=== PATIENT | female | born 1980 ===

== ENCOUNTER 2024-11-13 13:21 | Inpatient (IN) | payer OTHER, SELFPAY ==
[2024-11-13 13:31] VITALS: BP 144/86; BP 170/110; PULSE 114; PULSE 130; RESP 18; TEMP 36.8; O2SAT 96; BMI 40.1
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
--- NOTE | 2024-11-13 13:43 | ECG_ITS ---
Test Reason : MED CLEARANCE Blood Pressure : */* mmHG Vent. Rate : 84 BPM Atrial Rate : 84 BPM P-R Int : 146 ms QRS Dur : 102 ms QT Int : 380 ms P-R-T Axes : 47 -13 12 degrees QTcB Int : 449 ms Normal sinus rhythm with sinus arrhythmia Normal ECG No previous ECGs available Referred By: Generic ED Physician Electronically Signed By: LANDEN CUEVAS
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
[2024-11-13] MEDS: diazePAM 10 MG/2 ML CARTRIDGE 5 MG IM (13:45)
--- NOTE | 2024-11-13 14:26 | PC.NURSE ---
at 1340, patient stood up out of bed, ripped gown and medical wires off and ran/screamed into ED hallway. patient then started pulling her own hair out in clumps and threw herself face down in the hallway. staff assist called to bedside, security at bedside. patient assisted to stand position and back into ED stretcher. patient placed into 4 pt restraints, see paper charting. patient medicated per MAR see restraint IM papers. patient has sitter at bedside. patient is speaking in somali, but at times requests interp. guyanese interp utilized for interaction with pt.
--- NOTE | 2024-11-13 14:32 | MHC.EDTECH ---
attempted to do ekg/labs pt refused I'm all set
--- NOTE | 2024-11-13 14:51 | PC.NURSE ---
patient sitting up in bed, [address] in [address], patient has +CRUISE COORDINATOR in all 4 extremities. patient had one episode of vomiting, clear vomit. ODT zofran offered to patient, patient refused to take zofran, patient states shes just trying to do whats right . patient educated zofran was for the nausea. patient appears very confused, keeps asking same questions despite being given answers. patient requested mauritanian interp, interp paged.
[2024-11-13] MEDS: OLANZapine 10 MG VIAL IM (15:20)
[2024-11-13 15:45] VITALS: BP 133/83; PULSE 103; RESP 18; O2SAT 100
--- NOTE | 2024-11-13 15:50 | PC.NURSE ---
at 1315 patient started screaming at sitter and people walking by, patient vomiting, refusing emesis bags, spitting on furniature in room. IM reglan given per MAR, IM zyprexa given per MAR and medication restraint sheet. procedures analyst at bedside as requested by patient, patient speaking over interp in polish at staff.
--- NOTE | 2024-11-13 15:56 | PC.NURSE ---
patient continues to yell out, does not follow commands, does not have congruent thinking or speech.
[2024-11-13 16:07] VITALS: BP 130/74; PULSE 116; RESP 20; O2SAT 98
[2024-11-13 18:02] LABS: UPreg QC Valid YES
[2024-11-13 18:09] LABS: MANUAL DIFF FLAG NO
[2024-11-13 18:14] LABS: Hematocrit 38.9 % (37.0-47.0); Hemoglobin 13.8 g/dl (12.0-16.0); Imm Gran Abs Auto 0.04 X10*3/uL (0.00-0.03); Imm Gran Pct Auto 0.3 % (0.0-0.4); Lymphocytes Absolute Auto 1.1 X10*3/uL (1.2-4.9); Mean Corpuscular HGB Conc 35.5 g/dl (31.0-35.0); Mean Corpuscular Hemoglobin 30.3 pg (27.0-33.0); Mean Corpuscular Volume 85.3 fL (80.0-98.0); NRBC Abs Auto 0.000 X10*3/uL (0.0-0.012); NRBC Pct Auto 0.0 /100WBC (0.0-0.2); Platelet Count 347 X10*3/uL (160-400); Red Blood Count 4.56 X10*6/uL (4.20-5.50); White Blood Count 12.5 X10*3/uL (4.8-10.8)
[2024-11-13 18:17] LABS: Cannabinoid Screen Urine POSITIVE (Not Detect)
[2024-11-13 18:48] LABS: Alanine Aminotransferase 24 U/L (0-31); Albumin Level 4.5 g/dL (3.5-5.0); Alkaline Phosphatase 76 U/L (39-117); Anion Gap 13 (12-20); Aspartate Amino Transferase 31 U/L (5-31); Blood Urea Nitrogen 11 mg/dL (9-16); Calcium 9.3 mg/dL (8.4-10.2); Carbon Dioxide 22 mmol/L (22-29); Chloride 108 mmol/L (96-108); Creatinine Clr Calc Pharmacy 159.0; Estimated Glomerular Filt Rate > 60; Potassium 3.7 mmol/L (3.3-5.1); Sodium 139 mmol/L (135-145); Total Protein 7.6 g/dL (6.5-8.0)
[2024-11-13 19:06] LABS: Appearance Urine Clear; Glucose Urine UA Negative (Negative); PH 5.5 (5.0-9.0); Specific Gravity - Urine 1.015 (1.005-1.025); UMIC TRIGGER UACC YES
--- OUTSIDE RECORDS SUMMARY | 2024-11-13 19:24 | XMS_ITS | Clinical Summary ---
Author Organization [facility] Address [address] [address] Phone Care Team Providers Care Furrier Apprentice Name Role Phone Pcp, Unknown Primary Care Provider Unavailabl e Allergies No known active allergies Medications No known medications Social History Tobacco Use Types Packs/Day Years Used Date Smoking Tobacco: Never Smokeless Tobacco: Never Tobacco Cessation:Counseling Given: Not Answered Alcohol Use Standard Drinks/Week Comments Not Currently 0 (1 standard drink = 0.6 oz pur e alcohol) Education Answer Date Recorded Are you interested in more education? Not on lu e 04/18/2024 Are you concerned about learning? Not on file 04/18/2024 No 04/18/2024 No 04/18/2024 Food Answer Date Recorded Within the past 6 months we worried whether our food would run out before we got money to buy more. Often True 08/12/2024 Within the past 6 months the food we bought just didn't last and we didn't have enough money to get more. Often True Residential Stability Answer Date Recor ded What is your housing situation today? I have marnie sing 08/12/2024 How many times have you move d in the past 12 months? Zero (I did not move) 08/12/2024 Paying for Meds Answer Date Recorded Do you have trouble paying for medicines? No 08/12/2024 Paying Utility Bills Answer Date Record ed Do you have trouble paying your heating or elect ricity bill? Yes 08/12/2024 Transportation Answer Date Recorded Has the lack of transportati on kept you from medical appointments or from getting medications? No 08/12/2024 Digital Access Answer Date Recorded No 08/12/2024 Yes 08/12/2024 Do you have reliable internet access at home? Ye s 08/12/2024 Do you have a device (e.g., phone, tablet, computer) with a working camera? Yes 08/12/2024 Intimate Partner Violence Answer Date R ecorded Are you denied basic needs s uch as food, clothing, or medical care? No 08/12/2024 In the past 12 months have y ou been in a relationship with a person who hurts, threatens, or tries to control you? No 08/12/2024 Are you denied basic needs s uch as food, clothing, or medical care? No 08/12/2024 In the past 12 months have y ou been in a relationship with a person who hurts, threatens, or tries to control you? No 08/12/2024 Comments Unknown Sex and Gender Information Value Date Recorded Sex Assigned at Female 08/12/2024 11:25 AM EDT Legal Sex Female 6:19 PM EST Gender Identity Female 08/12/2024 11:25 AM EDT Sexual Orientation Straight 08/12/2024 11 :25 AM EDT Last Filed Vital Signs Vital Sign Reading Time Taken Comments Blood Pressure 122/73 08/12/2024 11:26 AM EDT Pulse 67 08/12/2024 11:26 AM EDT Temperature 35.8 C (96.4 F) 08/12/2024 11:26 AM EDT Respiratory Rate 16 08/12/2024 11:26 AM EDT Oxygen Saturation 98% 08/12/2024 11:26 AM EDT Inhaled Oxygen Concentration - - Weight 131.5 kg (290 lb) 08/12/2024 11:26 AM EDT Height 162.6 cm (5' 4 ) 08/12/2024 11:26 AM EDT Body Mass Index 49.78 08/12/2024 11:26 AM EDT Plan of Treatment Health Maintenance Due Date Last Done Comments Adult Td,Tdap Booster 1981 DEPRESSION SCREENING 1993 HEPATITIS C SCREENING 06/22/1999 HIV ONE-TIME SCREENING (18-6 5 YEARS) 06/22/1999 PAP SMEAR 09/28/2008 09/28/2005, 09/28/2005 MAMMOGRAM 2021 INFLUENZA VACCINE (#1) 2024 COVID-19 VACCINE (2023-2 5 season) 2024 SCREENING FOR DIABETES 08/13/2027 08/12/2024 SMOKING STATUS SCREENING (On ce After 26 Yrs) Completed 08/12/2024 HEPATITIS A VACCINES Aged Out No long er eligible based on patient's age to complete this topic HIB VACCINES Aged Out No longer eligi ble based on patient's age to complete this topic MENINGOCOCCAL VACCINES (ACWY) Aged Out No longer eligible based on patient's age to complete this topic MENINGOCOCCAL VACCINES (B) Aged Out N o longer eligible based on patient's age to complete this topic PNEUMOCOCCAL VACCINES (0-49 years) Aged Out No longer eligible b ased on patient's age to complete this topic Medical Devices Not on file Insurance [address] [place], [place] [id number] Member Subscriber Plan / Payer (Ef fective 2024-Present) Name:Shana Zavaleta Y Relation to Subscriber:Self Name:Shana Zavaleta Y Payer ID:Not on file Type:O [address] Member Subscriber Plan / Payer (Ef fective 2024-Present) Name:Shana Zavaleta Y Relation to Subscriber:Self Name:Shana Zavaleta Y Payer ID:Not on file Type:O [address] Member Subscriber Plan / Payer (Ef fective 2024-Present) Name:Shana Zavaleta Y Relation to Subscriber:Self Name:Shana Zavaleta Y Payer ID:Not on file Type:O [address] Member Subscriber Plan / Payer (Ef fective 2024-Present) Name:Shana Zavaleta Y Relation to Subscriber:Self Name:Shana Zavaleta Y Payer ID:Not on file Type:O Address[address] [place], [place] [id number] Care Teams Furrier Apprentice Relationship Specialty Start Date End Date Pcp, Unknown PCP - General 04/18/24 Additional Source Comments The information contained in this document represents components of the legal health record. It is not the complete legal health record.[facility]
--- NOTE | 2024-11-13 19:52 | PC.NURSE ---
Assumed care of patient at 1845, patient calm and cooperative, offering no complaints to this RN, sitting in rocking chair in common area. Continue plan of care for CARE team yelena
[2024-11-14 05:33] VITALS: BP 140/83; PULSE 82; RESP 17; TEMP 36.6; O2SAT 99
--- NOTE | 2024-11-14 07:26 | PC.NURSE ---
Assumed care, report received. Pt is awake and reading her bible. she is provided breakfast, she showers and calls family. she is mildly anxious and restless.
[2024-11-14 07:36] VITALS: PULSE 82
[2024-11-14 11:23] VITALS: BP 109/56; PULSE 88; RESP 18; TEMP 36.1; O2SAT 96
[2024-11-14 13:18] VITALS: BP 118/77; PULSE 78; RESP 16; TEMP 36.4; O2SAT 98
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
[2024-11-14 13:44] VITALS: BMI 45.3
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
[2024-11-14 19:25] VITALS: BP 119/71; PULSE 76; RESP 18; TEMP 36.7; O2SAT 96
[2024-11-14] MEDS: Lidocaine 4 % Patch ADH..PATCH 1 PATCH TRANSDERMA (22:06)
[2024-11-15] VITALS (14 sets, daily range): BP systolic 116–135; BP diastolic 64–98; PULSE 87–118; RESP 16–18; TEMP 36.3–37; O2SAT 94–99
[2024-11-15 08:34] LABS: Alanine Aminotransferase 29 U/L (0-31); Albumin Level 4.7 g/dL (3.5-5.0); Alkaline Phosphatase 78 U/L (39-117); Anion Gap 13 (12-20); Aspartate Amino Transferase 36 U/L (5-31); Blood Urea Nitrogen 10 mg/dL (9-16); Calcium 9.4 mg/dL (8.4-10.2); Carbon Dioxide 23 mmol/L (22-29); Chloride 105 mmol/L (96-108); Cholesterol 159 mg/dL (<200); Creatinine Clr Calc Pharmacy 130.2; Estimated Glomerular Filt Rate > 60; HDL Cholesterol 42 mg/dL (>40); Potassium 3.8 mmol/L (3.3-5.1); Sodium 137 mmol/L (135-145); Total Protein 8.0 g/dL (6.5-8.0); Triglycerides 79 mg/dL (<150)
[2024-11-15 08:38] LABS: Hemoglobin A1C 120.5069 umol/L; Total Hemoglobin (HGBA1C) 3619.2986 umol/L
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
--- NOTE | 2024-11-15 20:35 | HO.PSYEVENT ---
Event Note Date of Service: 11/15/24 Psych Restraint Event Note: pt agitated; extremely intrusive, verbally abusive to both staff and patients, yanking phones out of patients hands and throwing items and unable to be redirected; started throwing trash cans down the [address] and got naked in the hallway. Pt remained unable to be redirected and needed chemical and physical restraint Time Spent With Patient Time: Total time managing care of this patient today ____ minutes.
[2024-11-15] MEDS: diazePAM 10 MG/2 ML CARTRIDGE 5 MG IM (20:47)
[2024-11-15] MEDS: OLANZapine 10 MG VIAL IM (20:47)
--- NOTE | 2024-11-15 21:44 | HO.PSYEVENT ---
Event Note Date of Service: 11/15/24 Psych Restraint Event Note: one hour later, pt remains agitated, yelling and swearing loudly and remains unable to be redirected; hse required additional chemical restraint in order to be safe to release from chair. Time Spent With Patient Time: Total time managing care of this patient today ____ minutes.
[2024-11-15] MEDS: diazePAM 10 MG/2 ML CARTRIDGE IM (22:11)
--- NOTE | 2024-11-15 22:32 | HO.PSYEVENT ---
Event Note Date of Service: 11/15/24 Psych Restraint Event Note: no change, remains highly agitated, thrashing around and not safe to let out of chair. Will extend time in chair and administer more medications if does not start to stabilize Time Spent With Patient Time: Total time managing care of this patient today ____ minutes.
--- NOTE | 2024-11-16 00:26 | PC.NURSE ---
This evening at the beginning of shift patient was heard to be loud and disruptive in the hallway. She was yelling, screaming, and throwing her arms in the air combatively. She was aggressive and posing harm to staff and other patients. Patients were stating they were scared of her actions and abusive language and retreated to their bedrooms. Patient took staff members badge and flipped it around due to her disgust . Patient was attempted to be redirected on multiple occasions and asked if she could speak one on one. As walking down the [address] to speak, she abruptly turns around and yells Fuck you! and mutters something to the concept of Jehovah. Patient began to disrobe herself and was naked and intrusive in staff and patients faces. A patient was speaking on the telephone, and at one point she walked over and ripped the phone out of their hand and slammed it against the wall. She continues to yell and scream no matter how many tactics of redirection were tried. She took multiple trash cans and threw them down the hallway emptying the trash out and kicking and throwing the trash everywhere. Security was called and patient continued to misbehave erratic. orthopedically impaired teacher provider Neymar was informed of patients behavior and her refusal of HS Zypexa 5mg PO tonight. Provider placed order for STAT physical restraint and also chemical restraints. Patient was placed in restraint chair at 20:40 and was given Zyprexa 10mg IM and Valium 5mg IM at 20:43. No positive effect occurred from these medications, and provider placed an order for STAT Haldol 5mg IM and Valium 10mg IM at 22:12. Patient seemed to have responded somewhat to these medications and was a bit subdued. An attempt of one leg was removed from restraint occurred at 23:00. Patient was kicking leg and used free leg to pull the other one out and tried to use both arms to pull out of the restraints simultaneously. Restraint was put back on at this time and patient began spitting. Neymar placed an order for Benadryl 50mg IM and Valium 10mg IM. This was not given since patient seemed to have become cooperative and subdued. Patient was released from restraint chair at 23:38. Provider was made aware of all events, along with patients mother, Elzbieta, via youth worker by telephone as requested by patient.
[2024-11-16 08:08] VITALS: BP 134/75; PULSE 88; RESP 20; TEMP 36.4; O2SAT 99
[2024-11-16] MEDS: Lidocaine 4 % Patch ADH..PATCH 3 PATCH TRANSDERMA (09:18)
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
[2024-11-16] MEDS: Magnesium Hydrox/Alum Hydrox 30 ML ORAL.SUSP PO (17:41)
[2024-11-16 20:00] VITALS: BP 139/81; PULSE 94; RESP 16; TEMP 37.1; O2SAT 97
[2024-11-17] MEDS: OLANZapine ODT 10 MG TAB.RAPDIS TRANSLINGU (01:33)
[2024-11-17 08:22] VITALS: BP 139/87; PULSE 106; RESP 14; TEMP 36.4; O2SAT 99
[2024-11-17] MEDS: Lidocaine 4 % Patch ADH..PATCH 3 PATCH TRANSDERMA (08:35)
--- NOTE | 2024-11-17 10:14 | PC.NURSE ---
Dr. Springer authorized late administration of Olanzapine.
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
[2024-11-17] MEDS: Magnesium Hydrox/Alum Hydrox 30 ML ORAL.SUSP PO (18:58)
[2024-11-17 19:46] VITALS: BP 117/73; PULSE 96; RESP 18; TEMP 36.5; O2SAT 97
[2024-11-18 08:04] VITALS: BP 131/77; PULSE 101; RESP 18; TEMP 36.5; O2SAT 97
[2024-11-18] MEDS: Lidocaine 4 % Patch ADH..PATCH 3 PATCH TRANSDERMA (08:35)
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
[2024-11-18] MEDS: Divalproex Sodium ER 250 MG TAB.ER.24H 750 MG PO (21:26)
[2024-11-18] MEDS: Magnesium Hydrox/Alum Hydrox 30 ML ORAL.SUSP PO (21:33)
[2024-11-18 22:19] VITALS: BP 125/69; PULSE 92; RESP 20; TEMP 36.4; O2SAT 96
[2024-11-19 07:23] VITALS: BP 140/81; PULSE 91; RESP 20; TEMP 36.8; O2SAT 98
[2024-11-19] MEDS: Lidocaine 4 % Patch ADH..PATCH 3 PATCH TRANSDERMA (08:19)
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
[2024-11-19 20:00] VITALS: BP 118/57; PULSE 76; RESP 18; TEMP 36.5; O2SAT 98
[2024-11-19] MEDS: Magnesium Hydrox/Alum Hydrox 30 ML ORAL.SUSP PO (21:27)
[2024-11-20 07:35] VITALS: BP 118/78; PULSE 83; RESP 16; TEMP 36.2; O2SAT 100
[2024-11-20] MEDS: Lidocaine 4 % Patch ADH..PATCH 3 PATCH TRANSDERMA ×2 (08:23→21:10)
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
[2024-11-20] MEDS: Magnesium Hydrox/Alum Hydrox 30 ML ORAL.SUSP PO (18:39)
[2024-11-20 20:00] VITALS: BP 136/82; PULSE 88; RESP 18; TEMP 36.5; O2SAT 99
[2024-11-21 07:00] VITALS: BMI 46.5
[2024-11-21 07:53] VITALS: BP 127/75; PULSE 91; RESP 18; TEMP 36.7; O2SAT 98
[2024-11-21] MEDS: Lidocaine 4 % Patch ADH..PATCH 3 PATCH TRANSDERMA ×2 (08:34→20:48)
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
[2024-11-21] MEDS: Magnesium Hydrox/Alum Hydrox 30 ML ORAL.SUSP PO (10:46)
[2024-11-21 15:31] LABS: Ammonia 53 umol/L (13-55)
[2024-11-21 15:46] LABS: Alanine Aminotransferase 38 U/L (0-31); Albumin Level 4.2 g/dL (3.5-5.0); Alkaline Phosphatase 61 U/L (39-117); Aspartate Amino Transferase 42 U/L (5-31); Total Protein 7.0 g/dL (6.5-8.0)
[2024-11-21 20:00] VITALS: BP 111/76; PULSE 87; RESP 16; TEMP 36.6; O2SAT 96
[2024-11-22 07:31] VITALS: BP 110/62; PULSE 86; RESP 16; TEMP 36.3; O2SAT 98
[2024-11-22] MEDS: Lidocaine 4 % Patch ADH..PATCH 3 PATCH TRANSDERMA (09:32)
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
== END 2024-11-22 10:50 | disposition home or self-care (01) | DRG 751 ==
LOC: HO.ED 11-14 07:58 → HO.PADLT16 11-14 11:56
PROVIDERS: Admitting Provider Registered Nurse; Emergency Provider Emergency Medicine; Responsible Provider Registered Nurse; Visit Provider Psychiatry & Neurology Psychiatry
DX: F33.3 Major depressive disorder, recurrent, severe with psychotic symptoms (principal); F43.10 Post-traumatic stress disorder, unspecified; Z79.899 Other long term (current) drug therapy
CPT/HCPCS: 36415; 80053; 80061; 80076; 80164; 80307; 81001; 81003; 81025; 82140; 83036; 84443; 85025; 93005; 99285; J1200; J1630; J2359; J2765; J3360; S9485

== ENCOUNTER → 2024-11-13 13:43 | Outpatient (BNV) | payer OTHER, SELFPAY | PROVIDERS: Emergency Provider Emergency Medicine; Visit Provider Internal Medicine | DX: Z13.6 Encounter for screening for cardiovascular disorders (principal) | CPT/HCPCS: 93010 ==

== ENCOUNTER → 2024-11-14 11:56 | Outpatient (BNV) | payer OTHER, SELFPAY | PROVIDERS: Admitting Provider Registered Nurse; Emergency Provider Emergency Medicine; Responsible Provider Registered Nurse; Visit Provider Psychiatry & Neurology Psychiatry | DX: F33.3 Major depressive disorder, recurrent, severe with psychotic symptoms (principal); F43.10 Post-traumatic stress disorder, unspecified | CPT/HCPCS: 90792; 99231; 99232; 99239 ==

== ENCOUNTER → 2024-11-14 11:56 | Outpatient (BNV) | payer OTHER, SELFPAY | PROVIDERS: Admitting Provider Registered Nurse; Emergency Provider Emergency Medicine; Responsible Provider Registered Nurse; Visit Provider Nurse Practitioner Family | DX: F23 Brief psychotic disorder (principal) | CPT/HCPCS: 99221 ==